=== PATIENT | female | born 1980 | race Caucasian/White ===

== ENCOUNTER 2024-01-16 20:26 | Emergency (ER) | payer OTHER ==
[2024-01-16 20:57] VITALS: BP 115/58; PULSE 66; RESP 16; TEMP 98.5; BMI 26.6
[2024-01-16] MEDS ORDERED: CEPHALEXIN MONOHYDRATE 500 MG CAPSULE (UD) ONE (21:55)
[2024-01-16] MEDS ORDERED: IBUPROFEN 600 MG TABLET (FP) PO ONE (21:56)
[2024-01-16] MEDS: CEPHALEXIN MONOHYDRATE 500 MG CAPSULE (UD) PO ONE (21:59)
[2024-01-16] MEDS: IBUPROFEN 600 MG TABLET (FP) PO ONE (21:59)
== END 2024-01-16 22:04 | disposition home or self-care (01) ==
LOC: FER 20:26
DX: S62.616A Displaced fracture of proximal phalanx of right little finger, initial encounter for closed fracture (principal); S00.83XA Contusion of other part of head, initial encounter; S60.511A Abrasion of right hand, initial encounter; W01.0XXA Fall on same level from slipping, tripping and stumbling without subsequent striking against object, initial encounter
CPT/HCPCS: 70150-TC-FY; 73130-TC-RT-FY; 73140-TC-RT-FY; 99284-25